=== PATIENT | female | born 1950 | race Caucasian/White ===

== ENCOUNTER → 2017-01-16 | Outpatient (CLI) | payer MEDICARE ==
[~2017-01-16] MED LIST: ASCO10004 PO; CHOL100015 PO; VITA1CAP3 PO; VITAMIN B1 PO; VITAMIN E PO
== END | disposition home or self-care (01) ==
LOC: STAR 13:14
PROVIDERS: ATTEND Specialist
DX: Z01.818 Encounter for other preprocedural examination (principal); D11.0 Benign neoplasm of parotid gland
CPT/HCPCS: 93005

== ENCOUNTER 2017-01-24 08:59 | Observation (INO) | payer MEDICARE ==
[2017-01-16 13:37] VITALS: BP 158/87
[~2017-01-24] VITALS: Ht 165.1 cm; Wt 97.4 kg
[2017-01-24] MEDS ORDERED: EPINEPHRINE TOPICAL SOLN 1 MG/ML, 30ML ONE (09:05)
[2017-01-24] MEDS ORDERED: BUPIVACAINE/PF 0.5% ONE (09:05)
[2017-01-24] MEDS ORDERED: THROMBIN 5,000 UNIT VIAL TP ONE (09:06)
[2017-01-24] MEDS ORDERED: EPINEPHRINE 1 MG/ML, 1ML ONE (09:06)
[2017-01-24] MEDS ORDERED: LIDOCAINE/PF 1%, 30ML ONE (09:06)
[2017-01-24] MEDS ORDERED: LACTATED RINGERS 1,000 ML IV SCH (09:25)
[2017-01-24] MEDS ORDERED: HYDROmorphone 1 MG/ML, 1ML ONE ×2 (10:06→13:38)
[2017-01-24] MEDS ORDERED: FENTANYL PF 250 MCG/5ML ONE (10:06)
[2017-01-24] MEDS ORDERED: OXYcodone 5 MG/5 ML ORAL.SOL UDC PO PRN (11:30)
[2017-01-24] MEDS ORDERED: ONDANSETRON 2MG/ML, 2ML IVPush PRN (11:30)
[2017-01-24] MEDS ORDERED: PROMETHAZINE 25 MG/ML, 1ML IV PRN (11:30)
[2017-01-24] MEDS ORDERED: MIDAZOLAM 1 MG/ML, 2ML IV PRN (11:30)
[2017-01-24] MEDS ORDERED: HYDROcodone/APAP 7.5-325MG/15ML UDC PO PRN (11:30)
[2017-01-24] MEDS ORDERED: FENTANYL PF 100 MCG/2ML IV PRN (11:30)
[2017-01-24] MEDS ORDERED: ACETAMINOPHEN 325 MG TABLET PO PRN (11:30)
[2017-01-24] MEDS ORDERED: BACITRACIN OINT 500U/GM, 15 GM ONE (12:59)
[2017-01-24] MEDS: LABETALOL 5MG/ML, 20ML IV PRN ×4 (13:22→14:48)
[2017-01-24] MEDS ORDERED: ONDANSETRON 2MG/ML, 2ML ONE ×2 (13:38→15:45)
[2017-01-24] MEDS ORDERED: MIDAZOLAM 1 MG/ML, 2ML ONE (13:38)
[2017-01-24] MEDS ORDERED: hydrALAzine 20 MG/ML, 1ML ONE (13:46)
[2017-01-24] MEDS: hydrALAzine 20 MG/ML, 1ML IV PRN ×2 (13:47→14:15)
[2017-01-24] MEDS: HYDROmorphone 1 MG/ML, 1ML IV PRN ×2 (13:51→14:40)
[2017-01-24] MEDS ORDERED: LABETALOL 5MG/ML, 20ML IVPush PRN (14:30)
[2017-01-24] MEDS ORDERED: ENALAPRILAT 1.25 MG/ML, 2ML IV PRN (14:30)
[2017-01-24] MEDS ORDERED: hydrALAzine 20 MG/ML, 1ML IV PRN (14:30)
[2017-01-24] MEDS ORDERED: PROMETHAZINE 25 MG/ML, 1ML ONE (14:30)
[2017-01-24 15:11] VITALS: BP 140/77
[2017-01-24] MEDS: LISINOPRIL 20 MG TABLET PO SCH ×2 (15:16→20:30)
[2017-01-24] MEDS: HYDROCHLOROTHIAZIDE 12.5 MG CAPSULE PO SCH ×2 (15:16→20:30)
[2017-01-24 15:27] LABS: BLOOD UREA NITROGEN 13 mg/dL (7-18)
[2017-01-24] MEDS ORDERED: ONDANSETRON 2MG/ML, 2ML IV PRN (15:30)
[2017-01-24] MEDS ORDERED: D5%-LACTATED RINGERS 1,000 ML IV SCH (15:30)
[2017-01-24] MEDS ORDERED: morphine SULFATE 10 MG/ML, 1ML IVPush PRN (15:30)
[2017-01-24] MEDS ORDERED: ROCURONIUM 10 MG/ML ONE (15:45)
[2017-01-24] MEDS ORDERED: PROPOFOL 10 MG/ML, 20ML ONE (15:45)
[2017-01-24] MEDS ORDERED: METOCLOPRAMIDE 5 MG/ML, 2ML ONE (15:45)
[2017-01-24] MEDS ORDERED: SUCCINYLCHOLINE 20 MG/ML, 10ML ONE (15:45)
[2017-01-24] MEDS ORDERED: PHENYLEPHRINE 10 MG/ML ONE (15:45)
[2017-01-24] MEDS ORDERED: CEFAZOLIN 1,000 MG ONE (15:45)
[2017-01-24] MEDS ORDERED: DEXAMETHASONE 4 MG/ML, 1ML ONE (15:45)
[2017-01-24] MEDS: INSULIN ASPART 100 UNITS/ML, PEN SQ-INSULIN SCH (18:46)
[2017-01-24 19:01] VITALS: BP 138/67
[2017-01-25 00:08] VITALS: BP 99/52
[2017-01-25 03:34] VITALS: BP 104/47
[2017-01-25 05:50] LABS: ASPARTATE AMINO TRANSFERASE 73 U/L (15-37); BLOOD UREA NITROGEN 18 mg/dL (7-18)
[2017-01-25] MEDS ORDERED: ASPIRIN 325 MG TABLET EC PO SCH (06:00)
[2017-01-25] MEDS: LISINOPRIL 20 MG TABLET PO SCH (07:53)
[2017-01-25] MEDS: HYDROCHLOROTHIAZIDE 12.5 MG CAPSULE PO SCH (07:53)
[2017-01-25] MEDS: INSULIN ASPART 100 UNITS/ML, PEN SQ-INSULIN SCH (07:54)
[2017-01-25 08:51] VITALS: BP 105/64
[2017-01-25] MEDS ORDERED: SITA50TA PO (09:27)
[2017-01-25] MEDS ORDERED: LISI-463 PO (09:27)
[2017-01-25] MEDS ORDERED: LISI-167 PO (09:36)
[2017-01-25 10:30] VITALS: BP 105/65
[2017-01-25] MEDS ORDERED: AMOX-291 PO (11:03)
[2017-01-25] MEDS ORDERED: HYDR-882 PO (11:03)
== END 2017-01-25 11:50 | disposition home or self-care (01) ==
LOC: OUT 08:59 → SUATTDRO 13:56 → 4NOR 15:05 → OUT 23:10 → 4NOR 23:10 → DCLOUNGE 01-25 10:55
DX: D11.0 Benign neoplasm of parotid gland (principal); I11.9 Hypertensive heart disease without heart failure; E11.9 Type 2 diabetes mellitus without complications; E66.9 Obesity, unspecified; Z82.3 Family history of stroke; Z83.3 Family history of diabetes mellitus
CPT/HCPCS: 36415; 42415; 80048; 80053; 81003; 82962; 83036; 85025; 88304; 88331; 93306; 96372; 96374; C1729; G0378; J0171; J0330; J0360; J0690; J1100; J1170; J1815; J2370; J2405; J2550; J2704; J2765; J3010; J3490; J7120; J7121